=== PATIENT | male | born 1980 | race Caucasian/White ===

== ENCOUNTER 2023-04-10 10:41 | Outpatient (OUT) | payer OTHER, SELFPAY ==
[2023-04-10 12:46] LABS: Calcium 8.7 mg/dL (8.5-10.1); Thyroid Stimulating Hormone 4.746 uIU/mL (0.358-3.740)
[2023-04-11 05:07] LABS: CEA 1.2 ng/mL (0.0-4.7)
== END 2023-04-10 10:42 ==
LOC: LAB 10:42
PROVIDERS: PCP Specialist
DX: E89.2 Postprocedural hypoparathyroidism (principal); C73 Malignant neoplasm of thyroid gland; E27.8 Other specified disorders of adrenal gland; E89.0 Postprocedural hypothyroidism
CPT/HCPCS: 36415; 82308; 82310; 82378; 84443

== ENCOUNTER 2023-07-31 10:29 | Outpatient (OUT) | payer OTHER, SELFPAY ==
[2023-07-31 11:38] LABS: Calcium 7.9 mg/dL (8.5-10.1); Magnesium 1.8 mg/dL (1.8-2.4); Phosphorus 4.6 mg/dL (2.6-4.7); Thyroid Stimulating Hormone 0.027 uIU/mL (0.358-3.740)
[2023-08-01 04:07] LABS: CEA 2.6 ng/mL (0.0-4.7)
[2023-08-01 12:09] LABS: PTH, Intact 13 pg/mL (15-65)
== END 2023-07-31 10:30 | disposition home or self-care (01) ==
LOC: LAB 10:31
DX: C73 Malignant neoplasm of thyroid gland (principal)
CPT/HCPCS: 36415; 82308; 82310; 82378; 83735; 83970; 84100; 84443